=== PATIENT | female | born 1965 | race Caucasian/White ===

== ENCOUNTER 2019-06-11 13:31 | Emergency (ER) | payer OTHER ==
[~2019-06-11] VITALS: Ht 157.5 cm; Wt 78.2 kg
[~2019-06-11 13:31] MED LIST: MECL12.574 PO
[2019-06-11 14:15] VITALS: Ht 157.5 cm; Wt 78.2 kg
[2019-06-11] MEDS ORDERED: METOCLOPRAMIDE 10 MG INJ IV STA (16:10)
[2019-06-11] MEDS ORDERED: SOD CHLORIDE 0.9% 1,000 ML IV STA (16:10)
[2019-06-11] MEDS ORDERED: DIPHENHYDRAMINE 50 MG INJ IV STA (16:10)
[2019-06-11] MEDS ORDERED: MECLIZINE 12.5 MG TAB PO ONE (16:30)
[2019-06-11 19:00] VITALS: BP 123/66; PULSE 88; RESP 19
== END 2019-06-11 19:12 | disposition home or self-care (01) ==
LOC: E/R 13:31
DX: R42 Dizziness and giddiness (principal); R51 Headache; R11.2 Nausea with vomiting, unspecified; R40.2142 Coma scale, eyes open, spontaneous, at arrival to emergency department; R40.2252 Coma scale, best verbal response, oriented, at arrival to emergency department; R40.2362 Coma scale, best motor response, obeys commands, at arrival to emergency department
CPT/HCPCS: 36415; 70450; 80048; 81001; 84484; 85025; 93005; 96374; 96375; 99285; J1200; J2765; J7030